=== PATIENT | female | born 1995 | race American Indian/Alaskan Native ===

== ENCOUNTER 2019-05-12 22:57 | Emergency (ER) | payer OTHER ==
[2019-05-12] MEDS ORDERED: SODIUM CHLORIDE 0.9% 1000 ML 1,000 ML IV ONE (23:54)
[2019-05-12] MEDS ORDERED: KETOROLAC 30 MG/1 ML INJ IV ONE (23:55)
--- NOTE | 2019-05-13 00:32 | Emergency Department Report ---
ED Female HPI - General Chief complaint: Vaginal Bleeding Stated complaint: VAG BLEEDING/POST MISCARRIAGE Time Seen by Provider: 05/12/19 23:34 Source: EMS Mode of arrival: Stretcher Limitations: No Limitations - History of Present Illness Initial comments: 24-year-old female with no significant past medical history presents to the hospital with complains of heavy vaginal bleeding today. Patient had a miscarriage on April 22. She presented to [facility] and had a miscarriage at 4 months. She was seen in the ER and states passed the placenta after discharge. She is scheduled follow up with [facility] tomorrow. Today she developed heavy vaginal bleeding and suprapubic cramping. She's used 6 pads prior to arrival. She complains of feeling lightheaded but denies syncope. This was her first . - Related Data Previous Rx's Medication Instructions Recorded Last Taken Type Ibuprofen [Motrin] 800 mg PO Q8HR PRN #30 tablet 05/13/19 Unknown Rx Allergies Allergy/AdvReac Type Severity Reaction Status Date / Time shellfish derived Allergy Unknown Verified 05/13/19 01:40 ED Review of Systems ROS: Stated complaint: VAG BLEEDING/POST MISCARRIAGE Other details as noted in HPI Comment: All other systems reviewed and negative ED Past Medical Hx - Past Medical History Previous Medical History?: No - Surgical History Past Surgical History?: No - Social History Smoking Status: Current Every Day Smoker Substance Use Type: Alcohol, Marijuana - Medications Home Medications: Home Medications Medication Instructions Recorded Confirmed Last Taken Type Ibuprofen [Motrin] 800 mg PO Q8HR PRN #30 tablet 05/13/19 Unknown Rx ED Physical Exam - General Limitations: No Limitations - Other Other exam information: General: No limitations, patient is alert in no acute distress Head exam: Atraumatic, normocephalic Eyes exam: Normal appearance ENT: Moist mucous membrane Neck exam: Normal inspection, full range of motion Respiratory exam: Clear to auscultation bilateral, no wheezes, rales, crackles Cardiovascular: Normal rate and rhythm Abdomen: Soft, nondistended, mild suprapubic tenderness, with normal bowel sounds, no rebound, or guarding, : moderate vag bleeding with clot in vault. cevix closed Extremity: No deformity Back: Normal Inspection Neurologic: Alert, oriented x3, speech clear, no gross motor or sensory deficit Psychiatric: Normal mood, affect Skin: No rash ED Course Vital Signs 05/13/19 05/13/19 02:21 03:15 Temperature 98.5 F Pulse Rate 94 H 94 H Respiratory 18 18 Rate Blood Pressure 116/65 98/68 [Right] O2 Sat by Pulse 98 98 Oximetry - Reevaluation(s) Reevaluation #1: 05/13/19 03:56 pt reports bleeding has slowed down. pain has improved after toradol. Pt receiving 1 L NS - Consultations Consultation #1: 05/13/19 03:55 Attempted to speak to [facility] regarding pt ed workup and planned f/u for [facility] line contacted, they state they do not have the pt's info in their system ED Medical Decision Making - Lab Data Result diagrams: 05/13/19 02:10 Lab Results 05/13/19 05/13/19 Range/Units 02:10 02:10 WBC 10.3 (4.5-11.0) K/mm3 RBC 3.33 L (3.65-5.03) M/mm3 Hgb 10.6 (10.1-14.3) gm/dl Hct 31.6 (30.3-42.9) % MCV 95 (79-97) fl MCH 32 (28-32) pg MCHC 33 (30-34) % RDW 13.9 (13.2-15.2) % Plt Count 263 (140-440) K/mm3 Lymph % (Auto) 16.9 (13.4-35.0) % Frederick % (Auto) 6.6 (0.0-7.3) % Eos % (Auto) 1.1 (0.0-4.3) % Baso % (Auto) 0.2 (0.0-1.8) % Lymph # 1.7 (1.2-5.4) K/mm3 Frederick # 0.7 (0.0-0.8) K/mm3 Eos # 0.1 (0.0-0.4) K/mm3 Baso # 0.0 (0.0-0.1) K/mm3 Seg Neutrophils % 75.2 H (40.0-70.0) % Seg Neutrophils # 7.7 (1.8-7.7) K/mm3 HCG, Quant 28.56 H (0-4) mIU/mL - Radiology Data Radiology results: report reviewed ULTRASOUND OBSTETRIC Indication: recent miscarriage, heavy vag bleeding Findings: Transabdominal and transvaginal imaging is performed. No intrauterine is seen. The uterus measures 10.4 cm in length. Endometrial stripe measures 16 mm. No Doppler signal was seen within the endometrium. No definite retained products of gestation are seen. The ovaries are unremarkable. Impression: No intrauterine is seen. There is thickening of the endometrium which correlates with patient's history of bleeding. No Doppler signal was seen within the endometrium . No definite retained products of gestation are seen. - Medical Decision Making The patient presents with heavy vaginal bleeding after recent miscarriage. No retained products ultrasound. Hemoglobin normal. Vital signs stable. Cramps improved after Toradol. Bleeding improved during ED stay. Attempted to contact [facility], however transfer service did not have a record of her. Patient has a scheduled appointment for tomorrow and will be provided her results from today to take to her appointment tomorrow. blood type a+ (no rhogam) - Differential Diagnosis miscarriage, retained products,anemia Critical Care Time: No Critical care attestation.: If time is entered above; I have spent that time in minutes in the direct care of this critically ill patient, excluding procedure time. ED Disposition Clinical Impression: Miscarriage Disposition: DC-01 TO HOME OR SELFCARE Is pt being admited?: No Does the pt Need Aspirin: No Condition: Stable Instructions: Spontaneous Miscarriage (ED) Additional Instructions: Take the medication as prescribed. Follow-up with your doctor or with the d octor/clinic provided. Return if symptoms worsen as indicated by your discharge instructions. Prescriptions: Ibuprofen [Motrin] 800 mg PO Q8HR PRN #30 tablet PRN Reason: Pain , Severe (7-10) Referrals: [facility] transport [facility], [Other] - 24 Hours (as scheduled) Time of Disposition: 04:47
--- NOTE | 2019-05-13 02:30 | Ultrasound Report ---
ULTRASOUND OBSTETRIC Indication: recent miscarriage, heavy vag bleeding Findings: Transabdominal and transvaginal imaging is performed. No intrauterine is seen. The uterus measures 10.4 cm in length. Endometrial stripe measures 16 mm. No Doppler signal was seen within the endometrium. No definite retained products of gestation are seen. The ovaries are unremarkable. Impression: No intrauterine is seen. There is thickening of the endometrium which correlates with patie nt's history of bleeding. No Doppler signal was seen within the endometrium. No definite retained pro ducts of gestation are seen. Signer Name: Abram Yates MD Signed: 05/13/2019 2:25 AM Workstation Name: [id number]
[2019-05-13] MEDS ORDERED: SODIUM CHLORIDE 0.9% 1000 ML 1,000 ML ONE (03:09)
[2019-05-13 03:16] VITALS: BP 98/68
[2019-05-13 03:20] LABS: Basophils % (Auto) 0.2 % (0.0-1.8); Eosinophils # (Auto) 0.1 K/mm3 (0.0-0.4); Eosinophils % (Auto) 1.1 % (0.0-4.3); Hematocrit 31.6 % (30.3-42.9); Hemoglobin 10.6 gm/dl (10.1-14.3); Lymphocytes # (Auto) 1.7 K/mm3 (1.2-5.4); Lymphocytes % (Auto) 16.9 % (13.4-35.0); Mean Corpuscular HGB Conc 33 % (30-34); Mean Corpuscular Volume 95 fl (79-97); Monocytes # (Auto) 0.7 K/mm3 (0.0-0.8); Monocytes % (Auto) 6.6 % (0.0-7.3); Platelet Count 263 K/mm3 (140-440); Red Blood Count 3.33 M/mm3 (3.65-5.03); Red Cell Distribution Width 13.9 % (13.2-15.2)
== END 2019-05-13 06:01 | disposition home or self-care (01) ==
LOC: ED 22:57
DX: O03.9 Complete or unspecified spontaneous abortion without complication (principal); O99.331 Smoking (tobacco) complicating pregnancy, first trimester; O26.891 Other specified pregnancy related conditions, first trimester; R42 Dizziness and giddiness; F12.10 Cannabis abuse, uncomplicated; Z79.899 Other long term (current) drug therapy; Z91.013 Allergy to seafood; Z3A.01 Less than 8 weeks gestation of pregnancy
CPT/HCPCS: 36415; 76801; 76817; 84702; 85025; 86850; 86900; 86901; 96361; 96374; 99285; J1885; J7030